=== PATIENT | male | born 1975 | race Caucasian/White ===

== ENCOUNTER 2024-11-04 12:32 | Outpatient (AMB) | payer OTHER, SELFPAY ==
--- NOTE | 2024-11-04 12:49 | HO.SPINEOV ---
Intake Visit Reasons: Low back pain Intake Note: Mr. Scherer is here today c/o Low back pain. 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 In addition he noticed tightness on the left side of his neck and when this neck pain increased the other symptom also increased in severity. He had a few episodes of dizziness. He underwent several conservative management, including chiropractic therapy physical therapy, acupuncture. The symptoms were debilitating. He decided to discontinue his activities such as running and hot yoga and over a period of 8 months the symptoms diminished and were more controlled. However recently the symptoms started to include the right side. He developed an acute deltoid weakness 3 weeks ago without numbness or pain. This incident was precipitated by playing softball with his daughter and a 10 mi run the days before. Fortunately, the strength has mostly returned. He also has severe tightness in his biceps with running and he has to shake his arm to get rid of these symptoms. He notices severe tightness in the trapezius region bilaterally. Recently, he started to do neck traction as he thought his symptoms were associated with foraminal stenosis seen on his MRI of the cervical spine. Traction produces tingling in bilateral fingers. 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 A repeat MRI showed no increase of the cystic mass. Contrast showed no enhancement. Neurological exam shows no abnormalities. We had an extensive discussion about the possible cause of progressive symptoms that involve the face, neck and arms. The symptoms are most likely explained by the intraspinal cyst. I think an increase in venous pressure during exercises translate in the development of symptoms. Traction produces tingling in his fingers which in my opinion again points towards the abnormality in the spinal cord. I do not think any of his symptoms are related to the bilateral C6 foraminal stenosis and [id number]-op-[id number] left C7 foraminal stenosis. I do not recommend a surgical intervention to reduce the size of the cyst. Surgery carries a high-risk of creating permanent neurological deficits. I would avoid situation that increase venous pressure with a reduce in outflow of the spinal fluid. I would repeat another MRI of the cervical spine 1 year. I spent 60 minutes in his consult for history, physical exam, and to discuss radiological results and answering questions. Thank you for allowing me to participate in your patients care. total time spent was 60 minutes in counseling ,coordination of plan, personal review of imaging, surgical decision making and subsequent plan Jimenez Steele MD, PhD Spine Fellowship Trained Neurosurgeon Director, [facility] Coding Level of Care Code New Pt Level 5 (20616) Diagnoses Syrinx of spinal cord G95.0
== END 2024-11-04 13:44 | disposition home or self-care (01) ==
LOC: HO.HNS 12:33
PROVIDERS: Visit Provider Neurological Surgery
DX: G95.0 Syringomyelia and syringobulbia (principal)
CPT/HCPCS: 99205

== ENCOUNTER → 2024-11-04 12:32 | Outpatient (BNVA) | payer OTHER, SELFPAY | PROVIDERS: Visit Provider Neurological Surgery ==

== ENCOUNTER 2025-07-12 11:15 | Day surgery (SDC) | payer OTHER, SELFPAY ==
--- OUTSIDE RECORDS SUMMARY | 2025-07-08 18:26 | XMS_ITS | Clinical Summary ---
Author Organization [facility] Address [address] [place] [address] Care Team Providers Care Book Salesman Name Role Phone Pcp, No Primary Care Provider Unavailabl e Allergies No known active allergies Encounters Date Type Department Care Team Description 06/29/2025 2:00 PM EST Consult [facility] [phone] Sergio Painting MD Bilateral foot pain (Primary Dx) 06/29/2025 1:50 PM EST [place] [id number] from Last 3 Months Social History Tobacco Use Types Packs/Day Years Used Date Smoking Tobacco: Never Assessed Sex and Gender Information Value Date Recorded Sex Assigned at Not on file Legal Sex Male 12:59 PM EDT Gender Identity Not on file Sexual Orientation Not on file Plan of Treatment Health Maintenance Due Date Last Done Comments Hepatitis C Virus Screening 1976 HIV Screening 1989 DTaP/Tdap/Td Vaccines (1 - Tdap) 1995 Hepatitis B Vaccines (1 of 3 - 19+ 3-dose series) 1995 Colonoscopy 2021 Influenza Vaccine 03/19/2025 05/25/2024, 05/21/2023, 05/23/2022 COVID-19 Vaccine ( - 2024-2 6 season) 2025 05/17/2021, 08/30/2020, 08/09/2020 Pneumococcal Vaccine: Pediatric (0-5 Years) and At-Risk Patients (6 to 49 Years) Aged Out No longer eligible b ased on patient's age to complete this topic Procedures Procedure Name Priority Date/Time Associated Diagnosis Comments XR FOOT 3+ VIEWS-BILATERAL Routine 06/29/2025 2:19 PM EST Bilateral foot pain from Last 3 Months Results * XR Foot 3+ views-Bilateral (06/29/2025 2:19 PM EST) Narrative [facility] - 06/29/2025 2:19 PM EST This exam was performed in office at [facility] and images reviewed by orthopedic provider. Any findings are documented within ambulatory encounter note on date of service. us Sergio Painting MD IMG DIAGNOSTIC IMAGING ORDERA BLES Final Result [facility] from Last 3 Months Insurance [employer] HMO/POS Care Teams Book Salesman Relationship Specialty Start Date End Date Pcp, No PCP - General General Medicine 06/29/25
--- OUTSIDE RECORDS SUMMARY | 2025-07-08 18:26 | XMS_ITS ---
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
--- NOTE | 2025-07-09 11:29 | HO.ANESPROP2 ---
Documented by User: Jackelyn Gorman NP 07/09/25 11:30 HPI - Anesthesia Eval Consult details Narrative: 49 yr old male for left C6 and C7 Cervical Transforaminal HECTOR PMFSH Active Problems Active Problems: All Active Problems (Updated 06/28/25 @ 19:20 by Brandin Pringle DO) Cervical radiculitis (Acute) Syrinx of spinal cord (Acute) Past Medical History Medical History Alcohol abuse Surgical History Surgical History H/O foot surgery Social History Social History Patient Tobacco Use Status: Never used Tobacco Use of substances other than those prescribed or required for medical reasons: No Have you been hit, kicked, punched, or otherwise hurt by someone within the past year? If so, by whom?: No Advance Directives: No Advance Directives Information Provided: Yes Meds Allergies Allergy/AdvReac Type Severity Reaction Status Date / Time No Known Allergies Allergy Verified 07/09/25 11:51 Home Medications ?Medication ?Instructions ?Recorded ?Confirmed ?Last Taken ?Type No Known Home Meds 07/12/25 07/12/25 Unknown History Documented by User: Jennifer Xiao MD 07/12/25 11:45 [facility] Past Medical History Medical History Alcohol abuse Surgical History Surgical History H/O foot surgery History of Problems with Anesthesia: No Social History Social History Patient Tobacco Use Status: Never used Tobacco Use of substances other than those prescribed or required for medical reasons: No Have you been hit, kicked, punched, or otherwise hurt by someone within the past year? If so, by whom?: No Advance Directives: No Advance Directives Information Provided: Yes Meds Allergies Allergy/AdvReac Type Severity Reaction Status Date / Time No Known Allergies Allergy Verified 07/09/25 11:51 Home Medications ?Medication ?Instructions ?Recorded ?Confirmed ?Last Taken ?Type No Known Home Meds 07/12/25 07/12/25 Unknown History Exam Airway Mallampati Class: II TM Dist: >3cm Neck ROM: Full Loose/Missing/Broken Teeth: No Heart: RRR Lungs: CTA Assessment and Plan Assessment Anesthesia Assessment: Anesthesia Plan Discussed and Chart Reviewed Final Anesthetic Review History of Problems with Anesthesia: No NPO: Yes ASA Class: II Final Preanesthetic Review: Meds/Allgs Chart Reviewed, Consent Obtained/Reviewed and Anes Risks/Benef Reviewed Patient Risk: Low Procedure Risk: Low Anesthetic Plan Anesthetic Plan: MAC: Disposition: Standard PACU
--- NOTE | ~2025-07-12 | FL_ITS ---
EXAMINATION: FL GUIDANCE ONLY HISTORY: Procedural guidance COMPARISON: None available. TECHNIQUE: Fluoroscopy time: 17 seconds. Cumulative Dose: 1.90 mGy. DAP: 84.54 uGym2 Images: 2. FINDINGS: Fluoroscopic spot films of the cervical spine demonstrate needles and contrast material at 2 levels on the left. FL/FL guidance in OR IMPRESSION: Fluoroscopy during procedure. Please see procedure report for additional information. Electronically signed by: Sedrick Parry MD 07/12/2025 02:36 PM EST
[2025-07-12 11:30] VITALS: BP 117/84; PULSE 77; RESP 20; TEMP 36.3; O2SAT 97; BMI 27.1
--- NOTE | 2025-07-12 11:38 | MHC.SHP ---
Pre-Procedural Eval Section A - 24 Hr Update-Section A only Date of Service: 07/12/25 The patient is an INPATIENT: No Section B - Complete if H&P > 30 days Chief Complaint: Radiculopathy, cervical region Details of Present Illness: Persistent left-sided cervical radiculitis neural foraminal narrowing Relevant Family History (Specify if Yes): No Relevant Social History: None Present Medications: see Short Stay Collaborative assessment Medical History: No relevant PMH History of Previous Operations: No relevant previous surgery Allergies: Allergies Allergy/AdvReac Type Severity Reaction Status Date / Time No Known Allergies Allergy Verified 07/09/25 11:51 Review of Systems Sugical H&P ROS: Negative: Constitution, Cardiovascular, Respiratory, Neurological, Psychiatric, Hem-Onc, Allergic/Immunologic, Gastrointestinal, Genitourinary, Musculoskeletal, Integumentary, Endocrine and Eyes/Ears/Nose/Throat Exam Surgical H&P Exam: Normal: HEENT, Normal: Heart, Normal: Lungs, Normal: Extremities, Normal: Abdomen, Normal: Skin and Normal: Neurological Plan Diagnosis/Plan: Unchanged I have reviewed the history and physical and performed a pertinent physical examination on my patient. No changes have occurred unless specified. Time Spent With Patient Time: Total time managing care of this patient today ____ minutes.
--- NOTE | 2025-07-12 11:40 | MHC.SHP ---
Pre-Procedural Eval Section A - 24 Hr Update-Section A only Date of Service: 07/12/25 The patient is an INPATIENT: No The patient has been examined within 24 hours of the surgical procedure. The History & Physical has been completed within 30 days and I have reviewed it.: No Section B - Complete if H&P > 30 days Chief Complaint: Radiculopathy, cervical region Details of Present Illness: Persistent left-sided cervical radiculitis secondary to neural foraminal stenosis Relevant Family History (Specify if Yes): No Relevant Social History: None Present Medications: see Short Stay Collaborative assessment Medical History: No relevant PMH History of Previous Operations: No relevant previous surgery Allergies: Allergies Allergy/AdvReac Type Severity Reaction Status Date / Time No Known Allergies Allergy Verified 07/09/25 11:51 Review of Systems Sugical H&P ROS: Negative: Constitution, Cardiovascular, Respiratory, Neurological, Psychiatric, Hem-Onc, Allergic/Immunologic, Gastrointestinal, Genitourinary, Musculoskeletal, Integumentary, Endocrine and Eyes/Ears/Nose/Throat Exam Surgical H&P Exam: Normal: HEENT, Normal: Heart, Normal: Lungs, Normal: Extremities, Normal: Abdomen, Normal: Skin and Normal: Neurological Plan Diagnosis/Plan: Unchanged I have reviewed the history and physical and performed a pertinent physical examination on my patient. No changes have occurred unless specified. Time Spent With Patient Time: Total time managing care of this patient today ____ minutes.
--- NOTE | 2025-07-12 11:43 | W.PM.OPN ---
Operative Note Operative Note Date of Service: 07/12/25 Narrative: Procedure performed: Left C6 and C7 TFESI Preop diagnosis: Cervical radiculitis Postop diagnosis: The same Anesthesia: Mac After informed consent was obtained patient was brought into the procedure room and placed in supine position on the procedure table. Skin over left side of the neck was prepped and draped in the usual sterile manner. Left C6 neural foramen was visualized utilizing fluoroscopy. 3.5 in 25 gauge spinal needle was introduced percutaneously and advanced toward the posterior pillar at the indicated level at about 1 o'clock position. Once contact with the bone was reached, needle was then redirected into the outer 3rd of the neural foramen as was demonstrated on AP and lateral fluoroscopic images. Needle placement was verified utilizing 1 cc of Omnipaque contrast solution. Additional 1 cc of solution was injected under live fluoroscopy. Excellent flow through the neural foramen without evidence of vascular uptake was visualized. 1 cc of 1% preservative-free lidocaine was injected and patient was observed for 60 seconds. 15 mg of preservative-free dexamethasone was injected after negative aspiration for blood and cerebrospinal fluid. The identical procedure was repeated at left C7 level. Patient tolerated procedure very well without complications. Radiation exposure was documented in the chart.
[2025-07-12] MEDS: Lactated Ringers 1,000 ML 100 ML IVCONT (11:46)
[2025-07-12 12:48] VITALS: BP 116/68; PULSE 74; RESP 18; TEMP 36.4; O2SAT 95
[2025-07-12 13:02] VITALS: BP 109/71; PULSE 62; RESP 16; TEMP 37.1; O2SAT 94
== END 2025-07-12 13:25 | disposition home or self-care (01) ==
PROVIDERS: PCP Internal Medicine; Visit Provider Physical Medicine & Rehabilitation
PROC: (CPT 64479; principal; 2025-07-12 13:30)
DX: M54.12 Radiculopathy, cervical region (principal); M54.2 Cervicalgia; M48.02 Spinal stenosis, cervical region; Z79.899 Other long term (current) drug therapy; Z79.1 Long term (current) use of non-steroidal anti-inflammatories (NSAID)
CPT/HCPCS: 64479; 64480; J1100; J2003; J2250; J3010; Q9967

== ENCOUNTER → 2025-07-12 11:15 | Outpatient (BNV) | payer OTHER, SELFPAY | PROVIDERS: PCP Internal Medicine; Visit Provider Physical Medicine & Rehabilitation | DX: M54.12 Radiculopathy, cervical region (principal) | CPT/HCPCS: 64479; 64480 ==